=== PATIENT | male | born 1955 | race Caucasian/White ===

== ENCOUNTER 2019-04-26 21:41 | Emergency (ER) | payer OTHER, MEDICAID ==
[~2019-04-26] VITALS: Ht 193 cm; Wt 86.2 kg
[2019-04-26 21:45] VITALS: BP 149/72
--- NOTE | 2019-04-26 21:50 | NUR ---
PT AMBULATED TO BED 7
[2019-04-26] MEDS ORDERED: KETOROLAC 60 MG/2 ML VIAL IM ONE (21:55)
--- NOTE | 2019-04-26 22:00 | NUR ---
64 Y/O MALE PRESENTS TO ED, C/O OF LEFT TORSO PAIN. PT STATES PAIN IS ONGOING FOR PAST 3 DAYS. DENIES ANY CHEST PAIN OR SOB. PT HAS FULL ROM ON BOTH EXTREMITIES. PT TOOK MOTRIN BUT WITH LITTLE RELIEF. PT STABLE CONDITION. ERMD AWARE. WILL CONTINUE TO MONITOR.
--- NOTE | 2019-04-26 22:08 | NUR ---
dr. nguyen bedside evaluating pt
[2019-04-26 23:57] VITALS: BP 149/66
--- NOTE | 2019-04-26 23:57 | NUR ---
PT DISCHARGED WITH PAPERWORK. RX MOTRIN. EDUCATED PT REGARDING MEDICATION AND S/E. EDUCATED PT REGARDING D/C DIAGNOSIS AND INSTRUCTIONS. PT VERBALIZED UNDERSTANDING OF TEACHING. TOLD PT TO FOLLOW UP WITH PCP AND WHEN TO RETURN TO ED. PT STABLE CONDITION. ALL QUESTIONS ANSWERED.
== END 2019-04-26 23:57 | disposition home or self-care (01) ==
LOC: MED 21:41
DX: M54.6 Pain in thoracic spine (principal); R06.02 Shortness of breath; J45.909 Unspecified asthma, uncomplicated
CPT/HCPCS: 71045; 99283